=== PATIENT | female | born 1950 | race African-American/Black ===

== ENCOUNTER 2020-12-21 07:09 | Outpatient (CLI) | payer MEDICARE, BC ==
[~2020-12-21 07:09] MED LIST: ALBU0.635 INH; ALPR1TAB2 PO; BISA5TAB PO; BUPR1FIL5 SL; CHOL2000 PO; CLOP75TA52 PO; CLOPIDOGREL; DULO60CA7 PO; GABA600T7 PO; METF500T17 PO; METH-640 PO; METO25TA35 PO; MORP-29 PO; MULT-26 PO; OXYC1TAB14 PO; PANT20TA2 PO; POTA10TA6 PO; ROPI1TAB4 PO; TRAZ50TA66 PO
== END 2020-12-21 23:59 | disposition home or self-care (01) ==
LOC: ROC 07:09
PROVIDERS: ATTEND Radiology Radiation Oncology
DX: Z08 Encounter for follow-up examination after completed treatment for malignant neoplasm (principal); D44.7 Neoplasm of uncertain behavior of aortic body and other paraganglia
CPT/HCPCS: G0463